=== PATIENT | male | born 1945 | race Caucasian/White ===

== ENCOUNTER 2017-02-22 06:25 | Day surgery (SDC) | payer OTHER ==
--- NOTE | 2017-02-21 17:49 | HISTORY AND PHYSICAL ---
ADMITTED: 02/22/2017 HISTORY OF PRESENT ILLNESS: The patient is a 71-year-old male with a chief complaint of painful hammertoe deformities, right foot. He has previously seen and was worked up for surgery last year; however, had some family business to take care of and he was unable to carry out the procedure, states the pain has gotten progressively worse. MEDICAL/SURGICAL HISTORY: Past medical history includes a history of diabetes, hypertension, hypercholesterolemia, obesity, sleep disorder, and depression. Past surgical history: He has had wrist surgery, bilateral carpal tunnel done in 2002. In 2002, he had a UPP done and in 08/1993 had a UPP as well. MEDICATIONS: 1. Flonase 50 mcg or fluticasone proprionate 1-2 sprays per nostril as needed. 2. Pravastatin sodium 20 mg tablet 1 by mouth daily. 3. Metformin 500 mg 1 by mouth b.i.d. 4. Lisinopril 20 mg tablet 1 by mouth daily. 5. Zoloft 100 mg 1 by mouth daily. 6. Citrucel powder 1 scoop b.i.d. ALLERGIES: 1. REPORTS NO KNOWN DRUG OR FOOD ALLERGIES. SOCIAL HISTORY: He is . Does not smoke, does not drink. FAMILY HISTORY: Diabetes. PRIMARY CARE PROVIDER: Dr. Solano. REVIEW OF SYSTEMS: A 10-point review of systems positive for diabetes. PHYSICAL EXAMINATION: GENERAL: The patient is alert and oriented x3. NECK: Normocephalic, atraumatic. PERRLA. LUNGS: Clear to auscultation. No wheezing, rhonchi, or rales. HEART: Regular rate and rhythm. Regular S1, S2. No murmurs. ABDOMEN: Soft, tender, nondistended. No palpable masses. Normal tones. LOWER EXTREMITY: Vascular: DP and PT pulses are palpable at +1/4 bilaterally and equally symmetrical, subpapillary venous plexus capillary refill within normal limits. NEUROLOGIC: Deep tendon reflexes are intact, within normal limits. Orthopedically, there is noted hammertoe contractures at the distal and proximal interphalangeal joints of digits 2 through 5 of the right foot. LAB/IMAGING: Imaging consistent with clinical findings with contracture of the distal and proximal interphalangeal joints of digits 2 through 5, right foot. IMPRESSION: 1. Hammertoe deformities, 2 through 5, right foot. 2. Diabetic with neuropathy. PLAN: The patient is scheduled for an outpatient procedure consisting of arthroplasty of digits 2, 3, 4, and 5, right foot, surgery is scheduled on outpatient basis at [facility] on 02/22/2017.
[~2017-02-22] VITALS: Ht 177.8 cm; Wt 120.7 kg
--- NOTE | 2017-02-22 07:32 | NUR ---
PATIENT ASSESSMENT AND MED/ALLERGY REVIEW COMPLETE. VITALS STABLE. SURGICAL SITE MARKED BY PATIENT. LABS, EKG AND BLOOD GLUCOSE OBTAINED. BGL 114. IV STARTED IN R FOREARM WITH 2 ATTEMPTS. LR INFUSING ON PUMP. PREOP INSTRUCTIONS DISCUSSED. QUESTIONS ENCOURAGED AND ANSWERED BY RN. WILL CONTINUE TO MONITOR.
[2017-02-22] MEDS ORDERED: FLONASE AL50 MCG/ACT IN (07:35)
[2017-02-22] MEDS ORDERED: METFORMIN HCL500 MG PO (07:36)
[2017-02-22] MEDS ORDERED: ZESTRIL10 MG PO (07:36)
[2017-02-22] MEDS ORDERED: PRAVACHOL20 MG PO (07:36)
[2017-02-22] MEDS ORDERED: ZOLOFT50 MG PO (07:37)
[2017-02-22] MEDS ORDERED: CITRUCEL FIBER LAXAT PO (07:37)
[2017-02-22] MEDS ORDERED: PERCOCET1 TA4 PO (10:24)
--- NOTE | 2017-02-22 10:25 | Provider's Discharge Care Plan ---
Problem, Goal, Plan Problem List 1. Other hammer toe(s) (acquired), right foot Goals: Improve function Instructions: Follow up as directed
--- NOTE | 2017-02-22 10:25 | Provider's Discharge Care Plan ---
Problem, Goal, Plan Problem List 1. Other hammer toe(s) (acquired), right foot Goals: Improve function Instructions: Follow up as directed
--- NOTE | 2017-02-22 10:53 | NUR ---
PT DENIES PAIN OR NAUSEA. PT STATES HE IS WARM AND COMFORTABLE. VSS. RIGHT FOOT IS ELEVATED ON A PILLOW. DRESSING IS CLEAN AND DRY. TALKED TO PT IN PACU.
--- NOTE | 2017-02-22 11:15 | NUR ---
PATIENT BACK FROM OR. VITALS STABLE. RLE ELEVATED, WITH CLEAN, DRY BANDAGES. PATIENT DENIES PAIN AND NAUSEA AT THIS TIME. TOES PINK AND WARM, WITH CAP REFILL <3SEC. ABLE TO WIGGLE TOES. WILL CONTINUE OT MONITOR.
--- NOTE | 2017-02-22 11:29 | OPERATIVE REPORT ---
DATE OF SURGERY: 02/22/2017 SURGEON: Israel Gallego DPM PREOPERATIVE DIAGNOSIS: 1. Hammertoe deformity, second, third, fourth, fifth toe, right foot. POSTOPERATIVE DIAGNOSIS: 1. Hammertoe deformity, second, third, fourth, fifth toe, right foot. PROCEDURE PERFORMED: 1. Arthroplasty 2, 3, 4, 5 right foot ANESTHESIA: General. HEMOSTASIS: Achieved by pneumatic ankle tourniquet inflated to 250 mmHg pressure. TOURNIQUET TIME: 65 minutes. MATERIALS: 3-0 Polysorb and 4-0 Surgipro. INJECTABLES: Injected 20 mL of 0.5% bupivacaine plain. COMPLICATIONS: None. CONDITION: The patient tolerated anesthesia and procedure well. INDICATIONS: The patient is a 71-year-old male who has a history of diabetes, painful hammertoes with previous calluses and ulcerations. States he would like to have them corrected. He was previously scheduled before; however, had some family business and emergencies which we were unable to proceed. These issues have been resolved and he would like to move forward with the planned procedure. He is well aware of the planned procedure. There are no contraindications at this time. SURGICAL TECHNIQUE: The patient was brought to the operating room and placed on the operating room table in a supine position. An intraoperative pause was carried out with positive identification, proper limb, and consent form verified and confirmed. Upon administration of a general anesthetic, a pneumatic tourniquet was placed above the right ankle. The right lower extremity was prepped and draped in normal sterile fashion. Esmarch bandage was then utilized to exsanguinate the limb. The tourniquet was then inflated. Attention was then directed to procedure #1. Procedure #1: Arthroplasty, second digit, right foot: At this time, a linear incision was made extending from approximately midshaft of proximal phalanx extending all the way distally to just proximal to the proximal nail fold. Skin edges were reflected. At the distal interphalangeal joint, the long extensor tendon was transected and reflected back proximally. The head of the intermediate phalanx was excised via sagittal saw. The area was flushed. The tendon was further reflected back proximally. The head of the proximal phalanx was freed of the collateral ligaments and it was excised via sagittal saw. The long extensor tendon was then reapproximated at the distal interphalangeal joint level in a [id number] fashion with 3-0 Polysorb. Skin edges were then reapproximated in a running fashion with 4-0 Surgipro. Attention was then directed to procedure #2. Procedure #2: Arthroplsaty, third digit: The same procedure carried out in procedure 1 was carried out in procedure #2. There were no additions, deletions or complications. Attention was then directed to procedure #3. Procedure #3: Arthroplasty, fourth digit: At this time, a semi-elliptical incision was made overlying the distal interphalangeal joint, long extensor tendon was transected and reflected proximally. The head of the intermediate phalanx was excised via sagittal saw. The area was flushed. The long extensor tendon was reapproximated then with 3-0 Polysorb. A semi-elliptical incision was then made at the proximal interphalangeal joint of the fourth toe. The long extensor tendon was transected and reflected proximally. The head of the proximal phalanx was excised. The area was flushed. The long extensor tendon was then reapproximated in a [id number] fashion with 3-0 Polysorb. Both skin incisions were then reapproximated with 4-0 Surgipro. Attention was then directed to procedure #4. Procedure 4: Arthroplasty fifth digit: Two semi-elliptical incisions were made overlying the proximal interphalangeal joint, fifth digit. The long extensor tendon was transected. The head of the proximal phalanx was excised. The area was flushed. The long extensor tendon was reapproximated with 3-0 Polysorb and the skin was reapproximated with 4-0 Surgipro. The areas were then locally anesthetized with the aforementioned local anesthetic. A compressive dressing was applied. The tourniquet was released with reactive hyperemia and good digital perfusion. A final picture was taken with the mini C- arm, which revealed good resection of the joints. Good alignment in rectus and anatomic. There were no complications. The patient tolerated the procedures without complications and left the operating room with vital signs stable while in recovery, received written instructions of touchdown weightbearing to tolerance and utilization of a postoperative boot. Keep clean and dry. Follow back with me in 3 to 5 days.
--- NOTE | 2017-02-22 13:15 | NUR ---
PATIENT DEPARTED SCU WITH HIS AT 1315. VITALS REMAIN STABLE. SLIGHT DRAINAGE ON BANDAGE UPON STANDING. RN REINFORCED BANDAGE WITH GAUZE. IV DISCONTINUED. DISCHARGE INSTRUCTIONS DISCUSSED, INCLUDING DRESSING CARE, PAIN MANAGEMENT AND SIGNS/SYMPTOMS TO REPORT. PATIENT VERBALIZED GOOD UNDERSTANDING OF INSTRUCTIONS UPON DISCHARGE
[2017-02-22 14:43] VITALS: BP 139/83
== END 2017-02-22 13:15 | disposition home or self-care (01) ==
LOC: OR SRH 06:25 → SCU SRH 06:26 → OR SRH 08:15
PROVIDERS: Podiatrist
PROC: 0QBQ0ZZ Excision of Right Toe Phalanx, Open Approach (ICD-10-PCS; principal; 2017-02-22 08:15)
DX: M20.41 Other hammer toe(s) (acquired), right foot (principal); E11.42 Type 2 diabetes mellitus with diabetic polyneuropathy; Z79.84 Long term (current) use of oral hypoglycemic drugs; I10 Essential (primary) hypertension
CPT/HCPCS: 29229; 29240; 50002; 60001; 70002; 80575; 81267; 83168; 83414; 84038; 84522; 90074; 90100; 95059

== ENCOUNTER 2017-03-20 22:51 | Emergency (ER) | payer OTHER ==
[~2017-03-20 22:51] MED LIST: CITRUCEL FIBER LAXAT PO; FLONASE AL50 MCG/ACT IN; METFORMIN HCL500 MG PO; PERCOCET1 TA4 PO; PRAVACHOL20 MG PO; ZESTRIL10 MG PO; ZOLOFT50 MG PO
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
--- NOTE | 2017-03-21 | ED ORDER SUMMARY ---
..... Patient: JANETH INFANTE OrderSheet [facility] VisitID: [id number] [address] [place] [address] 71y, M Registration Date/Time: 03/20/2017 ORDER SHEET Weight: 117.9 kg Allergies: No Known Drug Allergy GENERAL ORDERS: Shoulder 2V or more Left Urgent (23:22 03/20/2017 Anna JOYCE) (Ack 23:24 [facility] ER Digital Art Director) (23:32 MCampbell) Sling - arm (00:12 03/21/2017 Anna JOYCE) (Ack 0:14 Roni R.N.) (0:14 Roni R.N.) MEDICATION ORDERS: Ibuprofen PO 800 mg (NOW) (00:12 03/21/2017 Anna JOYCE) (Ack 0:14 Manjitnandez R.N.) (0:26 Manjitnandez R.N.) Hydrocodone-APAP PO 5/325 mg (NOW, HIGH ALERT MEDICATION) (00:12 03/21/2017 Anna JOYCE) (Ack 0:14 Roni R.N.) (0:26 Roni R.N.) IV FLUIDS: ORDER SHEET NOTES: [Electronically signed by Wei Griffin R.N. (00:26 03/21/2017)] [Electronically signed by Sharla Magaña MD (01:55 03/21/2017)] [Electronically locked/signed by Wei Griffin R.N. (00:26 03/21/2017)]
--- NOTE | 2017-03-21 | ED ORDER SUMMARY ---
..... Patient: JANETH INFANTE OrderSheet [facility] VisitID: [id number] [address] [place] [address] 71y, M Registration Date/Time: 03/20/2017 ORDER SHEET Weight: 117.9 kg Allergies: No Known Drug Allergy GENERAL ORDERS: Shoulder 2V or more Left Urgent (23:22 03/20/2017 Anna JOYCE) (Ack 23:24 [facility] ER Telecom Sales Consultant) (23:32 MCampbell) Sling - arm (00:12 03/21/2017 Anna JOYCE) (Ack 0:14 Roni R.N.) (0:14 Roni R.N.) MEDICATION ORDERS: Ibuprofen PO 800 mg (NOW) (00:12 03/21/2017 Anna JOYCE) (Ack 0:14 Manjitnandez R.N.) (0:26 Manjitnandez R.N.) Hydrocodone-APAP PO 5/325 mg (NOW, HIGH ALERT MEDICATION) (00:12 03/21/2017 Anna JOYCE) (Ack 0:14 Roni R.N.) (0:26 Roni R.N.) IV FLUIDS: ORDER SHEET NOTES: [Electronically signed by Wei Griffin R.N. (00:26 03/21/2017)] [Electronically signed by Sharla Magaña MD (01:55 03/21/2017)] [Electronically locked/signed by Wei Griffin R.N. (00:26 03/21/2017)]
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
--- NOTE | 2017-03-21 01:56 | ED MAR SUMMARY ---
..... Medication Administration Record [facility] [address] [place] [address] Patient: JANETH INFANTE Visit ID: [id number] 71y, M Weight: 117.9 kg Height/Length: 70 in BMI: 37.3 ALLERGIES: No Known Drug Allergy Given 00:03/21/2017 Wei Griffin R.N. Medication Administered: IBUPROFEN [PO], Dose: 800 mg PO. Medication Ordered: Ibuprofen PO 800 mg (NOW). Given 00:03/21/2017 Wei Griffin RAlmaNAlma Medication Administered: HYDROCODONE-APAP [PO] (HYDROCODONE-ACETAMINOPHEN), Dose: 1 tab 5/325 mg Tablets PO. Medication Ordered: Hydrocodone-APAP PO 5/325 mg (NOW, HIGH ALERT MEDICATION).
--- NOTE | 2017-03-21 01:56 | ED MAR SUMMARY ---
..... Medication Administration Record [facility] [address] [place] [address] Patient: JANETH INFANTE Visit ID: [id number] 71y, M Weight: 117.9 kg Height/Length: 70 in BMI: 37.3 ALLERGIES: No Known Drug Allergy Given 00:03/21/2017 Wei Griffin R.N. Medication Administered: IBUPROFEN [PO], Dose: 800 mg PO. Medication Ordered: Ibuprofen PO 800 mg (NOW). Given 00:03/21/2017 Wei Griffin RAlmaNAlma Medication Administered: HYDROCODONE-APAP [PO] (HYDROCODONE-ACETAMINOPHEN), Dose: 1 tab 5/325 mg Tablets PO. Medication Ordered: Hydrocodone-APAP PO 5/325 mg (NOW, HIGH ALERT MEDICATION).
--- NOTE | 2017-03-21 01:56 | ED MED RECONCILIATION SUMMARY ---
Patient: JANETH INFANTE Medication Reconciliation Report [facility] VisitID: [id number] [address] [place] [address] 71y, M Registration Date/Time: 03/20/2017 Weight: 117.9 kg Height/Length: 70 in. BMI: 37.3 ALLERGIES: No Known Drug Allergy The patient's Home Medications are listed below: CONTINUE TAKING THE FOLLOWING MEDICATIONS: Citalopram Hydrobromide Oral (40 mg) 1 tablet, daily Lisinopril Oral 5 mg, daily MetFORMIN HCl Oral (500 mg), 2x a day The source(s) of the original Home Medication information: patient The following Medications were given to the patient in the Emergency Department: Ibuprofen [PO] PO 800 mg, administered: 03/21/2017 12:21:00 AM Hydrocodone-APAP [PO] PO 1 tab, administered: 03/21/2017 12:21:00 AM The following Medications were prescribed to the patient: Hydrocodone/APAP 5mg / 325mg: take 1 orally every 6 hours as needed for pain. Dispense five (5). No refill. -- Sharla Magaña MD Ibuprofen 800 mg tablets: take 1 tablet orally every 8 hours as needed for pain. Dispense twenty (20). No refill. -- Sharla Magaña MD
--- NOTE | 2017-03-21 01:56 | ED MED RECONCILIATION SUMMARY ---
Patient: JANETH INFANTE Medication Reconciliation Report [facility] VisitID: [id number] [address] [place] [address] 71y, M Registration Date/Time: 03/20/2017 Weight: 117.9 kg Height/Length: 70 in. BMI: 37.3 ALLERGIES: No Known Drug Allergy The patient's Home Medications are listed below: CONTINUE TAKING THE FOLLOWING MEDICATIONS: Citalopram Hydrobromide Oral (40 mg) 1 tablet, daily Lisinopril Oral 5 mg, daily MetFORMIN HCl Oral (500 mg), 2x a day The source(s) of the original Home Medication information: patient The following Medications were given to the patient in the Emergency Department: Ibuprofen [PO] PO 800 mg, administered: 03/21/2017 12:21:00 AM Hydrocodone-APAP [PO] PO 1 tab, administered: 03/21/2017 12:21:00 AM The following Medications were prescribed to the patient: Hydrocodone/APAP 5mg / 325mg: take 1 orally every 6 hours as needed for pain. Dispense five (5). No refill. -- Sharla Magaña MD Ibuprofen 800 mg tablets: take 1 tablet orally every 8 hours as needed for pain. Dispense twenty (20). No refill. -- Sharla Magaña MD
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
== END 2017-03-21 00:25 | disposition home or self-care (01) ==
LOC: ED SRH 22:51
DX: S43.102A Unspecified dislocation of left acromioclavicular joint, initial encounter (principal); S40.012A Contusion of left shoulder, initial encounter; V43.52XA Car driver injured in collision with other type car in traffic accident, initial encounter; Y93.89 Activity, other specified; Y92.410 Unspecified street and highway as the place of occurrence of the external cause; Y99.8 Other external cause status; Z79.899 Other long term (current) drug therapy; I10 Essential (primary) hypertension; E78.00 Pure hypercholesterolemia, unspecified; Z79.84 Long term (current) use of oral hypoglycemic drugs